=== PATIENT | female | born 1960 | race Caucasian/White ===

== ENCOUNTER → 2018-06-01 14:29 | Outpatient (CLI) | payer MEDICAID, SELFPAY ==
--- NOTE | 2018-06-01 14:31 | US_ITS ---
STUDY: THYROID ULTRASOUND REASON FOR EXAM: Female, 57 years old. Follow-up on thyroid nodule. TECHNIQUE: Ultrasound evaluation of the thyroid was performed with real-time and static kelley-scale imaging. # of Images: 59 COMPARISON: 09/06/2017 FINDINGS: RIGHT LOBE: The right lobe of the thyroid gland measures 3.1 x 1.1 x 0.6 cm. There is a homogeneous echotexture. There are no demonstrated solid, cystic or complex lesions. LEFT LOBE: The left lobe of the thyroid gland measures 3.4 x 1.0 x 0.6 cm. There is a homogeneous echotexture. Again demonstrated a small 3 x 2 x 2 mm hypoechoic nonvascular nodule in the mid left thyroid lobe unchanged. ISTHMUS: The isthmus measures 2.0 mm . US/Thyroid IMPRESSION: 1. Stable 3 mm hypoechoic nodule of the mid left thyroid. 2. Otherwise normal thyroid exam. Electronically Signed: Bill Clayton MD at 10:52 EDT Tel , Service support ,
== END ==
PROVIDERS: Family Provider Nurse Practitioner Family; PCP Nurse Practitioner Family
DX: E04.9 Nontoxic goiter, unspecified (principal)
CPT/HCPCS: 76536

== ENCOUNTER → 2018-08-13 12:20 | Outpatient (CLI) | payer MEDICAID, SELFPAY ==
--- NOTE | 2018-08-13 12:23 | BI_ITS ---
MAMMOGRAPHY - BILATERAL SCREENING REASON FOR EXAM: Female, 57 years old. Routine annual screening examination. PERTINENT HISTORY: Non-contributory. TECHNIQUE: Digital bilateral breast waylon (3D mammographic acquisition) in the CC and MLO projections. 2-D mediolateral oblique (MLO) and craniocaudad (CC) views of both breasts were obtained. CAD: Full Field Digital Mammography with Computer Added Detection was performed. COMPARISON: Comparison is made with prior study dated July 03, 2017. FINDINGS: Breast Composition: There are scattered areas of fibroglandular density. There are no dominant masses or suspicious calcifications. Stable 1.2 cm x 1.1 cm well-defined nodule in the upper outer portion of the right breast. Stable benign-appearing bilateral axillary lymph nodes. No other significant abnormalities are identified. There has been no significant change since the prior study. BI/SCREENING MAMM (CAD), BILAT IMPRESSION: Stable bilateral screening mammogram. Yearly follow-up mammogram recommended. (A) ASSESSMENT CATEGORY: BIRADS Category 2: Benign. A letter regarding these results will be sent to the patient by the facility within 30 days. Approximately 10% of breast cancers are not detected by mammography. A normal mammogram should not delay biopsy of a clinically suspicious abnormality. [id number] Electronically Signed: Edinson Ho MD at 14:29 EST Tel [phone], Service support ,
== END ==
PROVIDERS: Family Provider Nurse Practitioner Family; PCP Nurse Practitioner Family
DX: Z12.31 Encounter for screening mammogram for malignant neoplasm of breast (principal)
CPT/HCPCS: 77063; 77067

== ENCOUNTER → 2020-03-27 | Outpatient (CLI) | payer MEDICAID, SELFPAY ==
--- NOTE | 2020-03-27 13:42 | US_ITS ---
STUDY: THYROID ULTRASOUND REASON FOR EXAM: Female, 59 years old. HYPOTHYROIDISM TECHNIQUE: Ultrasound evaluation of the thyroid was performed with real-time and static kelley-scale imaging. COMPARISON: Comparison is made with prior examination dated 06/01/2018. FINDINGS: RIGHT LOBE: The right lobe of the thyroid gland measures 3.2 cm x 1.2 cm x 0.9 cm. There is a homogeneous echotexture. There are no demonstrated solid, cystic or complex lesions. LEFT LOBE: The left lobe of the thyroid gland measures 3.5 cm x 1 cm x 1 cm. There is a homogeneous echotexture. There is a 3 mm x 2 mm x 1 mm cyst in the upper pole of the left lobe. ISTHMUS: The isthmus measures 4.0 mm. The regional lymph nodes are normal. US/Thyroid IMPRESSION: Stable examination. Electronically Signed: Edinson Ho, at 14:42 EDT , Service support ,
== END | disposition home or self-care (01) ==
LOC: US 13:40
DX: E03.9 Hypothyroidism, unspecified (principal)
CPT/HCPCS: 76536

== ENCOUNTER 2021-10-28 13:52 | Outpatient (RCR) | payer MEDICAID, SELFPAY | END 2021-11-11 23:59 | LOC: NS 13:52 | PROVIDERS: Visit Provider Internal Medicine | DX: Z71.3 Dietary counseling and surveillance (principal); E66.01 Morbid (severe) obesity due to excess calories; Z68.42 Body mass index [BMI] 45.0-49.9, adult | CPT/HCPCS: 97802 ==

== ENCOUNTER 2021-12-20 14:25 | Outpatient (RCR) | payer MEDICAID, SELFPAY | END 2022-01-11 23:59 | LOC: NS 14:25 | PROVIDERS: Referring Provider Internal Medicine; Visit Provider Internal Medicine | DX: Z71.3 Dietary counseling and surveillance (principal); E66.01 Morbid (severe) obesity due to excess calories; Z68.42 Body mass index [BMI] 45.0-49.9, adult | CPT/HCPCS: 97803 ==

== ENCOUNTER 2022-02-10 15:30 | Outpatient (RCR) | payer MEDICAID, SELFPAY | END 2022-02-10 23:59 | LOC: NS 15:30 | PROVIDERS: Referring Provider Internal Medicine; Visit Provider Internal Medicine | DX: Z71.3 Dietary counseling and surveillance (principal); E66.01 Morbid (severe) obesity due to excess calories; Z68.42 Body mass index [BMI] 45.0-49.9, adult | CPT/HCPCS: 97803 ==

== ENCOUNTER 2022-03-03 13:18 | Outpatient (RCR) | payer MEDICAID, SELFPAY | END 2022-03-13 23:59 | LOC: NS 13:18 | PROVIDERS: Referring Provider Internal Medicine; Visit Provider Internal Medicine | DX: Z71.3 Dietary counseling and surveillance (principal); E66.01 Morbid (severe) obesity due to excess calories; Z68.42 Body mass index [BMI] 45.0-49.9, adult | CPT/HCPCS: 97803 ==

== ENCOUNTER 2022-04-07 14:16 | Outpatient (RCR) | payer MEDICAID, SELFPAY | END 2022-04-13 23:59 | LOC: NS 14:16 | PROVIDERS: Referring Provider Internal Medicine; Visit Provider Internal Medicine | DX: Z71.3 Dietary counseling and surveillance (principal); E66.01 Morbid (severe) obesity due to excess calories; Z68.42 Body mass index [BMI] 45.0-49.9, adult | CPT/HCPCS: 97803 ==

== ENCOUNTER 2022-06-20 10:45 | Day surgery (SDC) | payer MEDICAID, SELFPAY ==
[2022-06-20 11:06] VITALS: BP 146/73; PULSE 97; RESP 18; TEMP 36.6; O2SAT 98; BMI 44.0
[2022-06-20] MEDS: Lactated Ringers 1,000 ML 15 ML IV (11:21)
--- NOTE | 2022-06-20 11:52 | HP.PCM_ITS ---
History and Physical Date of Admission: 06/20/22 HISTORY AND PHYSICAL ? Katia Valle 1960 ? REFERRING PHYSICIAN: Rigoberto Quiros MD ? CHIEF COMPLAINT: Consult (colonoscopy) ? HPI: The patient is a 61 year old female referred for endoscopy. Katia notes no colon complaints. Patient denies any change in bowel habits, weight changes, blood in stools, black tarry stools or abdominal pain. Denies family history of colon cancer in a first-degree relative. The patient notes no upper GI complaints. ? Katia has undergone prior endoscopy. Last colonoscopy 12/22/[address] Schuster with conscious sedation. Patient was found at that time to have a a large polyp in the mid descending colon which was resected but could not be retrieved. Patient was noted to have immediate post-polypectomy bleeding and notes that she was transferred to [facility] via ambulance and observed overnight. She notes anxiety regarding colonoscopy procedure and has not had repeat colonoscopy until now, due to this anxiety. She notes she wishes to have this done at hospital setting in case I bleed again. ? Patient denies chest pain, shortness of breath or recent hospitalizations. Denies problems with sedation in the past. ? ? ? PAST MEDICAL HISTORY PAST MEDICAL HISTORY Diagnosis Date ? Benign neoplasm of colon ? ? BMI 45.0-49.9, adult (HCC) 06/18/2015 ? Depressive disorder 05/25/2020 ? Dyslipidemia 02/22/2021 ? Dysmetabolic syndrome X 09/22/2005 ? Essential hypertension, benign 09/22/2005 ? Gastroesophageal reflux disease with esophagitis without hemorrhage 05/25/2020 ? Hyperthyroidism 04/06/2006 ? s/p RODRIGUEZ ? Hypothyroidism 08/19/2008 ? Other irritable bowel syndrome 05/25/2020 ? Tobacco use disorder ? ? Vitamin D deficiency 05/25/2020 ? ? PAST SURGICAL HISTORY PAST SURGICAL HISTORY Procedure Laterality Date ? APPENDECTOMY ? 1998 ? DELIVERY ONLY ? 1983 ? , low cervical ? COLSC FLX W/RMVL OF TUMOR POLYP LESION SNARE TQ ? 12/22/2011 ? LIG/TRNSXJ FLP TUBE ABDL/VAG APPR UNI/BI ? 1983 ? ? ? CURRENT MEDICATIONS Current Outpatient Medications Medication Sig ? cholecalciferol, Vitamin D3, (VITAMIN D3) 1,250 mcg (50,000 unit) cap capsule Take 1 capsule by mouth every 2 weeks. ? famotidine (PEPCID) 40 mg tablet Take 1 tablet by mouth once daily. ? atorvastatin (LIPITOR) 10 mg tablet Take 1 tablet by mouth daily at bedtime. ? atenolol (TENORMIN) 50 mg tablet Take 1 tablet by mouth once daily. ? buPROPion XL (WELLBUTRIN XL) 150 mg 24 hr tablet Take 1 tablet by mouth once daily. ? hydroCHLOROthiazide (HYDRODIURIL, ESIDRIX) 25 mg tablet Take 1 tablet by mouth once daily. ? levothyroxine (LEVOXYL) 175 mcg tablet Take 1 tablet by mouth once daily. Take on empty stomach. For thyroid. ? dicyclomine (BENTYL) 10 mg capsule Take 1 capsule by mouth twice daily as needed. ? MULTIVITAMIN (VITAMIN DAILY ORAL) Take by mouth. ? No current facility-administered medications for this visit. ? ? ALLERGIES: Patient has no known allergies. ? PERSONAL HISTORY: SOCIAL HISTORY Social History ? Tobacco Use ? Smoking status: Every Day ? ? Packs/day: 1.00 ? ? Years: 45.00 ? ? Pack years: 45.00 ? ? Types: Cigarettes ? ? Start date: 10/15/1975 ? Smokeless tobacco: Never Vaping Use ? Vaping Use: Never used Substance Use Topics ? Alcohol use: Yes ? ? Alcohol/week: 6.0 standard drinks ? ? Types: 6 Cans of Beer (12oz) per week ? ? Comment: 1-2drinks 3x a week. ? Drug use: No ? ? FAMILY HISTORY: FAMILY HISTORY FAMILY HISTORY Problem Relation Age of Onset ? Heart Mother ? ? CHF, Afib ? Diabetes Mother ? ? Hypertension Mother ? ? Coronary Artery Disease Mother ? ? Kidney Disease Mother ? ? CKD ? Dementia Mother ? ? COPD Mother ? ? other (Other) Father ? ? pneumonia ? Diabetes Sister ? ? Hypertension Sister ? ? Lipids Sister ? ? Schizophrenia Sister ? ? Stroke Sister ? ? Heart Sister ? ? Hypertension Sister ? ? Diabetes Brother ? ? Hypertension Brother ? ? Obesity Brother ? ? COPD Brother ? ? Obstructive Sleep Apnea Brother ? ? Hypertension Brother ? ? Coronary Artery Disease Brother ? ? Cancer Maternal Grandmother ? ? skin ? Cancer Maternal Grandfather ? ? bowel cancer ? ? No Known Problems Daughter ? ? No Known Problems Son ? ? No Known Problems Son ? ? ? REVIEW OF SYMPTOMS: The review of systems data was entered by the nurse and reviewed by me ? Nursing Notes: Angelica Conde LPN 04/12/2022 12:51 PM Signed REVIEW OF SYSTEMS: General: The patient denies fatigue, denies weight loss, denies weight gain, denies feeling hot, and denies feelings of cold. Eyes: The patient denies glaucoma, denies eye injury/surgery, does not wear glasses or contacts. Ear/Nose/Throat: The patient denies allergies, denies hayfever, denies ear infections, and denies bloody noses. Cardiovascular: The patient denies chest pain, denies heart disease, notes high blood pressure,denies cardiac stent, denies prior heart attack, denies irregular heart beat, notes high cholesterol, denies poor circulation, denies heart failure, other cardiac issues, denies claudication, denies cold feet, denies peripheral arterial stent. Respiratory: The patient denies tuberculosis, denies pneumonia, denies frequent cough, denies pulmonary embolism, denies shortness of breath, and denies coughing up blood. Gastrointestinal: The patient denies difficulty swallowing, notes acid reflux, denies ulcers, denies vomiting, denies jaundice/hepatitis, denies gallbladder problems, denies black or tarry stools, denies hemorrhoids, denies bleeding from rectum, denies diverticulitis, denies constipation, denies diarrhea, denies loss of stool control, and denies hernias. Kidney/Bladder: The patient denies kidney stones, denies urine infections, and denies bloody urine. Skin: The patient denies a history of skin cancer, denies bleeding/changing moles, and denies a history of skin rash. Neurologic: The patient denies a history of epilepsy/convulsions, denies headaches, denies head/spinal injuries, and denies stroke/TIA. Psychiatric: The patient denies psychiatric medications, denies depression, and denies voices, denies substance abuse. Endocrine: The patient notes thyroid disorders, denies diabetes, and denies hormonal problems. Hematologic: The patient denies a history of bruising, denies bleeding, and denies anemia, denies blood clots. Infections: The patient denies a history of measles and mumps, denies rheumatic fever, and denies sexually transmitted diseases. Musculoskeletal: The patient denies back pain/injury, denies back problems, denies sciatica, denies knee/foot trouble, denies arthritis, or denies gout. ? ? When was patient's last Mammogram screening 2020 ? Last Colonoscopy: 2011 ? Angelica Conde LPN I have confirmed and edited as necessary, the PFSH and ROS obtained by others. Tracey Cavazos PA-C ? PHYSICAL EXAMINATION: ? General: The patient is 61 year old female, well nourished, well hydrated in no acute distress. The patient is oriented to time, place, and person. ? VITALS: Blood pressure 126/74, pulse 72, temperature 36.3 ?C (97.3 ?F), height 157.5 cm (5' 2), weight 111.6 kg (246 lb), last menstrual period 07/19/2006, SpO2 95 %. Body mass index is 44.99 kg/m?. ? HEENT: Normal cephalic, ataumatic, pupils are equally round, sclera are anicteric, mucous membranes are moist, oropharynx is clear. Neck has no masses, asymmetry or lymphadenopathy. ? Respiratory: Clear to auscultation and percussion. Normal respiratory excursion and pattern. ? Cardiac: Examination is regular rate and rhythm. Normal S1/S2 ? Abdominal exam: Soft, nontender, with no palpable masses. No hepatosplenomegaly. No palpable hernias. ? Extremities: no clubbing, cyanosis or edema. No adenopathy. ? LABORATORY VALUES: As Noted ? RADIOLOGIC STUDIES: As Noted ? ? Assessment IMPRESSION: encounter for screening colonoscopy. History of colon polyp. History of post-polypectomy bleed ? PLAN: I have reviewed my findings with the surgeon. Will plan for lower endoscopy. We discussed the risks and benefits of the planned endoscopy. I have informed the patient that complications can occur including failure to complete the endoscopy and perforation. The patient had the opportunity to ask questions concerning the planned endoscopy. My staff has also explained the procedure to the patient in understandable terms and has given the patient printed material concerning the procedure. The patient freely consents to surgery. ? The patient was offered a surgery/procedure at a [facility] facility. I have counseled the patient regarding the risk of exposure to and/or potential harm posed by the COVID-19 virus with having a surgery/procedure at this time versus the risk of? delaying the surgery/procedure. It is not possible to know either the risk of delaying the surgery or procedure or chance of getting an infection with perfect accuracy, but a joint decision was made between the patient and myself?to proceed at this time with endoscopy. ? ? I plan to use Golytely bowel preparation ? I have explained to the patient the difference between IV conscious sedation and MAC anesthesia - and I have offered either, according to the patient's wishes. I have explained that with IV conscious sedation there is no anesthesia provider available and therefore there is a limitation of the amount of IV medications that can be given and that the patient may wake up in the middle of the procedure and/or experience pain/discomfort during the procedure. Further discussion was done and the patient was given the opportunity to ask questions and all questions were answered. The patient chooses MAC anesthesia ? ? ? Diagnoses: (Z12.11) Encounter for screening for malignant neoplasm of colon (primary encounter diagnosis) ? Consultation requested by Dr. Quiros for an opinion regarding screening colonoscopy. My final recommendations will be communicated back to the request ing physician by way of shared Medical record or letter to requesting physician via US mail. ? Tracey Cavazos PA-C I have examined the patient and the H&P has been reviewed. There are no clinical changes since date of exam.
[2022-06-20 12:37] VITALS: BP 115/60; BP 146/73; PULSE 85; RESP 16; TEMP 36.5; O2SAT 93
--- NOTE | 2022-06-20 12:37 | OP.COLON_ITS ---
Patient Name: Katia Valle Procedure Date: 06/20/2022 12:10 PM Date of : 1960 Age: 61 Procedure: Colonoscopy Indications: High risk colon cancer surveillance: Personal history of colonic polyps Providers: Fadi Medina MD Medicines: See the Anesthesia note for documentation of the administered medications Patient Profile: This is a 61 year old female. Refer to note in patient chart for documentation of history and physical. Last Colonoscopy: 2011. Complications: No immediate complications. Estimated blood loss: None. Procedure: Pre-Anesthesia Assessment: - Prior to the procedure, a History and Physical was performed, and patient medications and allergies were reviewed. The patient's tolerance of previous anesthesia was also reviewed. The risks and benefits of the procedure and the sedation options and risks were discussed with the patient. All questions were answered, and informed consent was obtained. Prior Anticoagulants: The patient has taken no previous anticoagulant or antiplatelet agents. ASA Grade Assessment: III - A patient with severe systemic disease. After reviewing the risks and benefits, the patient was deemed in satisfactory condition to undergo the procedure. After I obtained informed consent, the scope was passed under direct vision. Throughout the procedure, the patient's blood pressure, pulse, and oxygen saturations were monitored continuously. The adult colonoscope was introduced through the anus and advanced to 2 cm into the ileum. The colonoscopy was performed without difficulty. The patient tolerated the procedure well. The quality of the bowel preparation was good. The terminal ileum, ileocecal valve, appendiceal orifice, and rectum were photographed. Scope In: 12:17:03 PM Scope Withdrawal Time 0 hours 7 minutes 7 seconds Scope Out: 12:32:19 PM Total Procedure Duration Time 0 hours 15 minutes 16 seconds Findings: The perianal and digital rectal examinations were normal. Multiple small and large-mouthed diverticula were found in the sigmoid colon and descending colon. Non-bleeding internal hemorrhoids were found during retroflexion. The hemorrhoids were mild and small. The terminal ileum appeared normal. The exam was otherwise without abnormality. Impression: - Diverticulosis in the sigmoid colon and in the descending colon. - Non-bleeding internal hemorrhoids. - The examined portion of the ileum was normal. - The examination was otherwise normal. - No specimens collected. Recommendation: - Patient has a contact number available for emergencies. The signs and symptoms of potential delayed complications were discussed with the patient. Return to normal activities tomorrow. Written discharge instructions were provided to the patient. - Resume previous diet. - Continue present medications. - Repeat colonoscopy in 10 years for screening purposes. - Return to primary care physician PRN. Procedure Code(s): --- Professional --- 69040, Colonoscopy, flexible; diagnostic, including collection of specimen(s) by brushing or washing, when performed (separate procedure) Diagnosis Code(s): --- Professional --- Z86.010, Personal history of colonic polyps K64.8, Other hemorrhoids K57.30, Diverticulosis of large intestine without perforation or abscess without bleeding CPT copyright 2017 [employer]. All rights reserved. The codes documented in this report are preliminary and upon sugar drier review may be revised to meet current compliance requirements. MD Fadi Manuel MD 06/20/2022 12:36:51 PM This report has been signed electronically. Number of Addenda: 0 Note Initiated On: 06/20/2022 12:10 PM
--- NOTE | 2022-06-20 12:38 | OP.CCLET_ITS ---
[facility] This procedure was performed on Monday, June 20, 2022. My impressions and recommendations are as follows: Impressions : - Diverticulosis in the sigmoid colon and in the descending colon. - Non-bleeding internal hemorrhoids. - The examined portion of the ileum was normal. - The examination was otherwise normal. - No specimens collected. Recommendations : - Patient has a contact number available for emergencies. The signs and symptoms of potential delayed complications were discussed with the patient. Return to normal activities tomorrow. Written discharge instructions were provided to the patient. - Resume previous diet. - Continue present medications. - Repeat colonoscopy in 10 years for screening purposes. - Return to primary care physician PRN. My findings are described in the full procedure note, which is enclosed. If I can be of further assistance, please feel free to contact me at Doctor phone number(s): , Work: . Sincerely, MD Fadi Manuel MD 06/20/2022 12:36:51 PM This report has been signed electronically.
[2022-06-20 12:45] VITALS: BP 113/62; BP 146/73; PULSE 85; RESP 16; O2SAT 93
[2022-06-20 12:50] VITALS: BP 107/70; BP 146/73; PULSE 83; RESP 16; O2SAT 94
[2022-06-20 12:55] VITALS: BP 119/68; BP 146/73; PULSE 80; RESP 16; TEMP 36.5; O2SAT 93
[2022-06-20 13:12] VITALS: BP 146/73
== END 2022-06-20 13:54 | disposition home or self-care (01) ==
LOC: EN 10:47 → AC 10:48
PROVIDERS: PCP Internal Medicine; Referring Provider Internal Medicine; Visit Provider Surgery
PROC: 0DJD8ZZ Inspection of Lower Intestinal Tract, Via Natural or Artificial Opening Endoscopic (ICD-10-PCS; CPT 45378; principal; 2022-06-20 11:55)
DX: Z12.11 Encounter for screening for malignant neoplasm of colon (principal); K57.30 Diverticulosis of large intestine without perforation or abscess without bleeding; K64.8 Other hemorrhoids; I10 Essential (primary) hypertension; E78.5 Hyperlipidemia, unspecified; F32.9 Major depressive disorder, single episode, unspecified; E88.81 Metabolic syndrome and other insulin resistance; K21.9 Gastro-esophageal reflux disease without esophagitis; E05.90 Thyrotoxicosis, unspecified without thyrotoxic crisis or storm; E55.9 Vitamin D deficiency, unspecified; Z79.899 Other long term (current) drug therapy; Z86.010 Personal history of colon polyps; F17.210 Nicotine dependence, cigarettes, uncomplicated
CPT/HCPCS: 45378; J7120; J2405

== ENCOUNTER → 2022-10-04 | Outpatient (CLI) | payer MEDICAID, SELFPAY ==
--- NOTE | 2022-10-04 14:11 | CT_ITS ---
STUDY: LOW DOSE CT LUNG CANCER SCREENING REASON FOR EXAM: Female, 61 years old. Lung cancer screening -- and gt;20 pk yr hx;current smoker; asymptomatic RADIATION DOSAGE (If Supplied By Facility): CTDIvol = ( 4.02 ) mGy, DLP = ( 131.39 ) mGycm TECHNIQUE: No contrast was administered. Low dose technique was utilized (average mAS-38 and kVp 120). 1.25 mm axial source images with a slice interval of 1.25-mm were reconstructed in lung windows. 2.5 mm axial source images with a slice interval of 2.5-mm were reconstructed in lung windows. 5.0 mm axial source images with a slice interval of 5.0-mm were reconstructed in soft tissue windows. COMPARISON: None. NODULES: No suspicious nodule is seen. Emphysema: Unremarkable Endobronchial lesion: None Aorta: Mild degree of atherosclerotic plaque formation at several of the aortic arch. CORONARY ARTERIES: Coronary artery calcification is seen. Heart: Unremarkable Pulmonary artery: Unremarkable Mediastinal nodes: Unremarkable Other chest and abdominal findings: CT/Low Dose CT Lung Screening IMPRESSION: Lung-RADS category 2 - Continue annual screening with LDCT in 12 months. IMPORTANT NOTES FOR USE: ACR Lung-RADS Version 1.1 Assessment Categories Release Date: 2018 Category: Coded 0-4 bases on nodule(s) with highest degree of suspicion. Negative screen is defined as categories 1 and 2; a positive screen is defined as categories 3 and 4. Category 3 and 4A nodules that are unchanged on interval CT should be coded as category 2, and individuals returned to screening in 12 months. Category 4X: Category 3 or 4 nodules with additional imaging findings that increase the suspicion of lung cancer, such as spiculation, GGN that doubles in size in 1 year, enlarged lymph notes, etc. Category Modifiers: S (significant finding unrelated to lung cancer) Electronically Signed: Edinson Ho MD at 14:43 EST ,
== END | disposition home or self-care (01) ==
LOC: CT 14:10
PROVIDERS: PCP Internal Medicine; Visit Provider Nurse Practitioner Family
DX: Z87.891 Personal history of nicotine dependence (principal); Z12.2 Encounter for screening for malignant neoplasm of respiratory organs
CPT/HCPCS: 71271

== ENCOUNTER 2024-09-29 17:31 | Emergency (ER) | payer MEDICARE, MEDICAID, SELFPAY ==
[2024-09-29 17:32] VITALS: BP 158/82; PULSE 77; RESP 16; TEMP 36.4; O2SAT 98; BMI 49.0
--- NOTE | 2024-09-29 17:41 | EX.ED.DYSGE1 ---
HPI <HELLEN Baig - Last Filed: 09/29/24 19:01> History of Present Illness Chief Complaint: General Illness Narrative Narrative: Patient is a 63-year-old female with history of hypertension hyperlipidemia, tobacco use, significant for obesity who presents to the [facility] apartment for 2 days of cough, generalized congestion, runny nose. Today, she noticed that she was more achy, had a headache, also has some dry throat. Patient is also here with her daughter who has the same symptoms. [facility] <HELLEN Baig - Last Filed: 09/29/24 19:01> [facility] Medical History Encounter for screening for malignant neoplasm of lung Post-menopausal Depression Alcohol use Thyroid disease High cholesterol History of IBS Hypertension Gastric reflux Shortness of breath on exertion Smoker Home Medications ?Medication ?Instructions ?Recorded ?Last Taken ?Type famotidine 40 mg tablet (Pepcid) 40 mg PO DAILY #30 tabs 05/16/15 Unknown Rx atenolol 50 mg tablet 50 mg PO DAILY 07/28/17 Unknown History dicyclomine 10 mg capsule 10 mg PO DAILY 07/28/17 Unknown History hydrochlorothiazide 25 mg tablet 25 mg PO DAILY 07/28/17 Unknown History levothyroxine 150 mcg tablet 175 mcg PO DAILY 07/28/17 Unknown History omeprazole 20 mg capsule,delayed 20 mg PO DAILY #30 caps 07/29/17 Unknown Rx release atorvastatin 10 mg tablet 10 mg PO QHS HLD 06/16/22 Unknown History Allergy/AdvReac Type Severity Reaction Status Date / Time No Known Allergies Allergy Verified 09/29/24 17:34 Surgical History History of colonoscopy History of appendectomy History of History of D&C Social History (Updated 10/04/22 @ 13:37 by Yareli Espinosa) Smoking Status: Current every day smoker tobacco type: cigarettes ROS <HELLEN Baig - Last Filed: 09/29/24 19:01> ROS ED ROS Narrative Constitutional: Negative for fever, chills, weight loss, weakness Eyes: Negative for vision loss, vision change, double vision ENT: Negative for any sore throat, ear pain, congestion Cardiovascular: Negative for any chest pain, tightness, palpitations Respiratory: Negative for any sputum production, hemoptysis, dyspnea on exertion, orthopnea. Positive cough, dyspnea Gastrointestinal: Negative for any abdominal pain, nausea, vomiting, diarrhea, constipation, blood in stool, blood in vomit : Negative for any urinary frequency, dysuria, retention, blood in urine Muscle skeletal: Negative for any neck pain, back pain Neurological: Negative for any syncope, dizziness. Positive for headache Skin: Negative for any rashes, itching, abrasions, lacerations Psychiatric: Negative for any depression, anxiety, stress, suicidal ideation, homicidal ideation Hematologic: Negative for any excessive bruising, easy bleeding EXAM <HELLEN Baig - Last Filed: 09/29/24 19:01> Physical Exam Narrative Exam Narrative: Vital signs reviewed. HEET: Head normocephalic atraumatic, TMs clear bilaterally. Posterior pharynx is clear, moist mucous membranes. Nares clear bilaterally. Neck: Supple with no lymphadenopathy or tenderness. No signs of meningismus. Cardiac: Regular rate and rhythm no murmurs gallops or rubs, equal peripheral pulses bilaterally. Respiratory: Lungs clear to auscultation bilaterally. No chest tenderness. Abdomen: Soft, nontender, nondistended. No abdominal bruit or pulsatile masses. No hepatosplenomegaly Extremities: No peripheral edema, no signs of gross trauma or deformity. Active full range of motion of all extremities. Neuro: Cranial nerves II through XII intact, no focal neurological deficits. Skin: Clean dry and intact with no rash, purpura, petechiae, vesicles or pustules. Backs/flank: No CVA tenderness, no midline spinal tenderness, no deformity. Psych: Normal mood and affect. No SI, HI or acute psychosis. Const Vital Signs: 09/29/24 17:32 09/29/24 17:48 09/29/24 18:00 Temperature 97.5 F L Temperature Source Temporal Pulse Rate 77 Respiratory Rate 16 18 Respiratory Pattern Normal Normal Blood Pressure 158/82 H Blood Pressure Mean 107 Pulse Ox 98 Oxygen Delivery Method Room Air <Dr. Sarath Acuña MD - Last Filed: 09/29/24 20:23> Physical Exam Const Vital Signs: 09/29/24 17:32 09/29/24 17:48 09/29/24 18:00 Temperature 97.5 F L Temperature Source Temporal Pulse Rate 77 Respiratory Rate 16 18 Respiratory Pattern Normal Normal Blood Pressure 158/82 H Blood Pressure Mean 107 Pulse Ox 98 Oxygen Delivery Method Room Air [facility] <HELLEN Baig - Last Filed: 09/29/24 19:01> [facility] Radiography Diagnostic Testing: Clinical Impression(s) from Imaging Studies Chest X-Ray 09/29/24 17:50 IMPRESSION: 1. No acute cardiopulmonary process. Reading Location: [facility] Treatment and Re-Evaluation :: Differential diagnosis includes however is not limited to: COVID-19, influenza, community pneumonia, RSV, other virus Patient appears generally well, vital signs are stable, patient is nontoxic-appearing. Presenting to the emergency department for cough, congestion of last 2 days. Patient two-view chest x-ray interpreted the ER physician was negative for any acute process. Patient's COVID-19 influenza RSV swab was negative. At this time, patient was given an albuterol inhaler and taught how to use it. She was also given a spacer. She is instructed to follow-up outpatient. She was educated that the patient could experience symptoms for the next 7 to 10 days. All questions answered, patient stable for discharge <Dr. Sarath Acuña MD - Last Filed: 09/29/24 20:23> [facility] Narrative Medical decision making narrative: I have personally performed a face to face assessment of the patient and have reviewed the [place] Note. I performed a substantive portion of the visit including all aspects of the following. My delgado findings include: History is remarkable for flulike symptoms that started in the past 24 to 48 hours. Patient endorses rhinorrhea, congestion, sore throat. She does have a cough. Cough is productive. She also was wheezing. She has no history of asthma or COPD. She is a smoker. She has never used an inhaler. She denies history of VTE. Denies leg pain, swelling discoloration. Other family members are ill. Apparently her daughter is being seen as well for flulike symptoms. Exam is remarkable for blood pressure of 158/82. She is not febrile. She not tachycardic tachypneic or hypoxic. She smells of tobacco. HEENT exam is remarkable for rhinorrhea. Posterior pharynx is normal. Neck is supple. There is no cervical lymphadenopathy. Patient has scattered expiratory wheezing noted with decreased air movement and increased expiratory phase. Heart is regular. Rate is normal. There is no murmur, gallop or rub. Lower extremity exam reveals no swelling, asymmetry, discoloration, leg vein distention, palp cord since on the distribution deep venous system. Medical Decision Making because patient has productive cough wheezing smoker will obtain x-ray to assess for pneumonia and rapid antigen for COVID, RSV and influenza. Since patient is never used an inhaler respiratory is instructing her how to use an inhaler and she will be reassessed. Other additions or changes: [None] Lab Data Attestation: I reviewed the patient's lab results. Lab results narrative: Rapid antigen for COVID, influenza and RSV was negative. Radiography Chest X-Ray - ED: 2 View and Read by ED Physician (Interpreted by me as suboptimal. Inspiratory volume is limited. The hilum is full bilaterally. Question peribronchial cuffing. On the lateral she has significant arthritic changes of the dorsal vertebral bodies. The retrocardiac space is opacified. However inspiratory volume is minimal. There) Diagnostic Testing: Clinical Impression(s) from Imaging Studies Chest X-Ray 09/29/24 17:50 IMPRESSION: 1. No acute cardiopulmonary process. Reading Location: [facility] Discharge Plan Triage Chief Complaint: General Illness ED Midlevel Provider: Dileep Bernal ED Provider: Sarath Acuña Dx/Rx/DC Orders Clinical Impression: URI (upper respiratory infection), Benign hypertension, History of gastroesophageal reflux (GERD), Tobacco abuse, Acute bronchospasm Instructions: ED URI, Viral, No Abx (Adult) Prescriptions: No Action famotidine [Pepcid] 40 MG tablet 40 mg PO DAILY Qty: 30 0RF levothyroxine 150 MCG tablet 175 mcg PO DAILY hydrochlorothiazide 25 MG tablet 25 mg PO DAILY dicyclomine 10 MG capsule 10 mg PO DAILY atenolol 50 MG tablet 50 mg PO DAILY omeprazole 20 MG capsule 20 mg PO DAILY Qty: 30 0RF atorvastatin 10 mg tablet 10 mg PO QHS Patient Comments: Take 1 tablet by mouth daily at bedtime. Primary Care Provider: Rigoberto Quiros Referrals: Rigoberto Quiros MD [Primary Care Provider] - Activity Restrictions/Additional Instructions: Continue using albuterol inhaler 2 puffs every 4-6 hours. You would likely have a upper respiratory tract virus, this can have symptoms on for the next 7 to 10 days. Make sure you take [id number] ibuprofen and Tylenol. Print Language: Hungarian Disposition Disposition: Home, Self Care Discharge Date/Time: 09/29/24 19:08
--- NOTE | 2024-09-29 17:50 | RAD_ITS ---
PROCEDURE: CHEST PA AND LATERAL REASON FOR EXAM: Cough TECHNIQUE: Frontal and lateral views of the chest. COMPARISON: 10/04/2022 FINDINGS: The lungs are clear. No pleural effusion or pneumothorax. The cardiomediastinal silhouette is unremarkable. No acute osseous or soft tissue abnormality. RAD/Chest PA and Lateral IMPRESSION: 1. No acute cardiopulmonary process. Reading Location: [facility]
[2024-09-29] MEDS: Albuterol Sulfate 8 gm Inhaler (60 puffs) 2 PUFF INHALATION (17:57)
[2024-09-29 18:00] VITALS: RESP 18
[2024-09-29] MEDS: Acetaminophen 500 MG Tablet 1000 MG PO (18:04)
== END 2024-09-29 19:08 | disposition home or self-care (01) ==
PROVIDERS: Emergency Provider Emergency Medicine; PCP Internal Medicine; Visit Provider Emergency Medicine
DX: J06.9 Acute upper respiratory infection, unspecified (principal); F17.200 Nicotine dependence, unspecified, uncomplicated; E78.00 Pure hypercholesterolemia, unspecified; I10 Essential (primary) hypertension; K21.9 Gastro-esophageal reflux disease without esophagitis; J98.01 Acute bronchospasm; Z79.899 Other long term (current) drug therapy; Z90.49 Acquired absence of other specified parts of digestive tract
CPT/HCPCS: 71046; 87631; 94640; 99282

== ENCOUNTER 2024-11-04 18:12 | Emergency (ER) | payer MEDICARE, MEDICAID, SELFPAY ==
[2024-11-04 18:14] VITALS: BP 152/81; PULSE 77; RESP 16; TEMP 36.8; O2SAT 98; BMI 47.4
[2024-11-04 20:00] VITALS: BP 119/63; PULSE 73; RESP 18; O2SAT 95
--- NOTE | 2024-11-04 20:08 | EDS_ITS ---
HPI History of Present Illness Chief Complaint: General Illness Detail of Chief Complaint: Headache, throat pain and abdominal pain with a stent Informant: patient Onset/Context/Timing Onset: Days (3 days) Context: Gradual Onset Timing: Continuous and Waxes and wanes Quality: Bifrontal pain, throat pain and generalized abdominal pain Location: Multiple areas Current Severity: Mild Maximum Severity: Moderate Worsened by: Nothing Relieved by: Nothing Associated Symptoms Associated Symptoms: Slight nausea Narrative Narrative: Patient is a 64-year-old woman. Patient presents with head pain, sore throat and generalized abdominal pain. She reports nausea without vomiting or diarrhea. She denies fever or chills. She denies double vision blurred vision loss of vision. Nuys ringing or ears decreased hearing. She denies rhinorrhea, congestion postnasal drainage. She denies change in voice. She denies difficulty swallowing. She denies cough or shortness of breath. She denies chest discomfort. She denies urologic symptoms. There is no history of trauma. There is no family history of subarachnoid hemorrhage. Prior similar symptoms: No Recent Illness/Hospitalization: No [facility] Medical History Encounter for screening for malignant neoplasm of lung Post-menopausal Depression Alcohol use Thyroid disease High cholesterol History of IBS Hypertension Gastric reflux Shortness of breath on exertion Smoker Home Medications ?Medication ?Instructions ?Recorded ?Last Taken ?Type famotidine 40 mg tablet (Pepcid) 40 mg PO DAILY #30 ta bs 05/16/15 Unknown Rx atenolol 50 mg tablet 50 mg PO DAILY 07/28/17 Unkn own History dicyclomine 10 mg capsule 10 mg PO DAILY 07/28/17 Unkn own History hydrochlorothiazide 25 mg tablet 25 mg PO DAILY Unknown History levothyroxine 150 mcg tablet 150 mcg PO DAILY 07/28/17 Unknown History omeprazole 20 mg capsule,delayed 20 mg PO DAILY #30 ca ps 07/29/17 Unknown Rx release atorvastatin 10 mg tablet 10 mg PO QHS HLD 06/16/22 Un known History amlodipine 2.5 mg tablet 2.5 mg PO DAILY 11/04/24 Unk nown History bupropion HCl 300 mg 24 hr tablet, 300 mg PO DAILY Unknown History extended release cholecalciferol (vitamin D3) 1,250 1,250 mcg PO QWEEK 11/04/24 Unknown History mcg (50,000 unit) capsule nystatin 100,000 unit/gram topical 1 applic topical BI D 11/04/24 Unknown History powder ([facility]) vibegron 75 mg tablet (Gemtesa) 75 mg PO DAILY 5 Unknown History Allergy/AdvReac Type Severity Reaction Status Date / Time No Known Allergies Allergy Verified 11/04/24 18:15 Surgical History History of colonoscopy History of appendectomy History of History of D&C Social History Smoking Status: Heavy Smoker (>10/day) ROS ROS ED Constitutional Constitutional ED: Denies chills, fever(s), subjective, sweats or weight loss Eyes Eyes: Denies blurry vision, change in vision or diplopia ENT ENT ED: Reports sore throat; Denies ear pain or rhinorrhea Cardiovascular Cardiovascular: Denies chest pain, orthopnea, palpitations or racing heartbeat Respiratory/Chest Respiratory/Chest: Denies cough, dyspnea, dyspnea on exertion or orthopnea Gastrointestinal Gastrointestinal: Reports abdominal pain and nausea; Denies constipation, diarrhea, melena or vomiting Genitourinary Genitourinary ED: Denies dysuria, hematuria or urinary frequency Musculoskeletal Musculoskeletal: Denies arthralgias or myalgias Integumentary Denies rash Neurologic Neurologic: Reports headache(s); Denies paresthesias or weakness Endocrine Endocrinology: Denies cold intolerance or heat intolerance EXAM Physical Exam Const Vital Signs: 11/04/24 18:14 11/04/24 19:28 11/04/24 20:00 Temperature 98.3 F Temperature Source Oral Pulse Rate 77 73 Respiratory Rate 16 18 Respiratory Effort Normal Non-Labored Respiratory Pattern Normal Blood Pressure 152/81 H 119/63 Blood Pressure Mean 104 81 Pulse Ox 98 95 Oxygen Delivery Method Room Air Room Air 11/04/24 22:00 Temperature Temperature Source Pulse Rate 69 Respiratory Rate 18 Respiratory Effort Respiratory Pattern Blood Pressure 110/77 Blood Pressure Mean 88 Pulse Ox 95 Oxygen Delivery Method Room Air Positive well nourished and well developed Constitutional Narrative: BMI is 47.4. Patient appears in no distress. General Appearance ED: well developed and NAD; Negative for cyanotic, diaphoretic or pallor HEENT Reports moist mucous membranes HEENT Narrative: Head is atraumatic normocephalic. Ears normal. Nares patent. Posterior pharynx is normal. Uvula is midline. There is no deviation with protrusion. There is no postnasal drainage noted. There is no dysphonia. Eyes PERRL and EOMs intact bilaterally General Eye ED: Negative for pale conjunctiva or scleral icterus Neck no lymphadenopathy, supple and no JVD Resp normal respiratory effort and clear to auscultation bilaterally Cardio regular rate, regular rhythm, S1 normal heart sound, S2 normal heart sound and no murmurs GI normal to inspection, nondistended, normoactive bowel sounds and non-distended; Negative for non-tender, hepatosplenomegaly or no masses GI Narrative: Patient is abdomen is soft. She complains of vague generalized discomfort to deep palpation. There is no guarding or peritoneal findings. There is no umbilical hernia. There are no skin lesions noted. Palpation: soft Back/Spine no CVA tenderness Extremity normal to inspection General Extremety ED: Negative for edema or tenderness General Extremity: Negative for edema Neuro oriented x3, CN's II-XII intact bilaterally and no sensory deficits noted Sensorium / Orientation: alert Motor Exam: strength 5/5 throughout Psych mental status grossly normal Skin no rashes or lesions noted, no wounds and skin turgor normal General Skin Exam: elasticity normal; Negative for jaundice or pallor MDM MDM MDM Narrative Medical decision making narrative: Suspect this represents viral infection. Do not believe patient has sinus infection or meningitis. She may have slight pharyngitis. There is no exuda tive pharyngitis and there is no concern for strep pharyngitis. Clinically she does not have any respiratory symptoms and auscultation is normal doubt pneumonia. Her abdominal exam is very vague will obtain screening blood work if there is anything of significant abnormal will obtain advanced imaging. Prior records were reviewed. History & Record Review Additional record(s) reviewed:: Prior ED visit (Seen for upper respiratory infection September 29, 2024. Seen at urgent care for lower extremity exam swelling April 2024. Was seen by oncology tirelessly alondra for cancer screening due to her smoking history. No imaging was obtained at that time.) Lab Data Attestation: I reviewed the patient's lab results. Lab results narrative: White count is elevated. The patient has normal differential. Patient's had elevated white count dating back to 2016. She has never had this worked up per patient and I do not find any oncology records to indicate this has been worked up. Urinalysis was obtained and is negative. She has mild proteinuria and occult blood. Labs: Laboratory Results - last 24 hr 11/04/24 11/04/24 20:25 20:28 WBC 13.2 H RBC 4.30 Hgb 13.3 Hct 38.6 MCV 89.8 MCH 30.9 MCHC 34.5 RDW Std Deviation 40.9 RDW Coeff of Ashia 12.4 Plt Count 238 MPV 11.1 Immature Gran % (Auto) 0.300 Neut % (Auto) 65.4 Lymph % (Auto) 24.5 Meigs % (Auto) 7.3 Eos % (Auto) 2.0 Baso % (Auto) 0.5 Absolute Neuts (auto) 8.6 H Absolute Lymphs (auto) 3.22 Nucleated RBC % 0 Sodium 130 L Potassium 3.8 Chloride 94 L Carbon Dioxide 22.3 Anion Gap 13 BUN 4 Creatinine 0.51 L Estim Creat Clear Calc 84.20 Est GFR (MDRD) Non-Af 103 BUN/Creatinine Ratio 7.9 L Glucose 129 H Calcium 9.0 Urine Color Straw Urine Clarity Clear Urine pH 6.5 Ur Specific [place] 1.005 Urine Protein 15 H Urine Glucose (UA) Normal Urine Ketones Negative Urine Occult Blood 10 H Urine Nitrite Negative Urine Bilirubin Negative Urine Urobilinogen Normal Ur Leukocyte Esterase Negative Urine RBC 0 SEEN Urine WBC 0-5 SEEN Ur Squamous Epith Cells 0-5 SEEN Urine Bacteria RARE Urine Mucus 0 SEEN Treatment and Re-Evaluation :: Patient was reassessed and informed of results at 2215. Headache essentially resolved with Tylenol. She was discharged to home appropriate home-going instructions. Discharge Plan Triage Chief Complaint: General Illness ED Provider: Sarath Acuña Dx/Rx/DC Orders Clinical Impression: Acute viral syndrome, Leukocytosis, BMI 45.0-49.9, adult Instructions: ED Viral Syndrome (Adult) Prescriptions: No Action famotidine [Pepcid] 40 MG tablet 40 mg PO DAILY Qty: 30 0RF levothyroxine 150 MCG tablet 150 mcg PO DAILY hydrochlorothiazide 25 MG tablet 25 mg PO DAILY dicyclomine 10 MG capsule 10 mg PO DAILY atenolol 50 MG tablet 50 mg PO DAILY omeprazole 20 MG capsule 20 mg PO DAILY Qty: 30 0RF atorvastatin 10 mg tablet 10 mg PO QHS Patient Comments: Take 1 tablet by mouth daily at bedtime. amlodipine 2.5 mg tablet 2.5 mg PO DAILY bupropion HCl 300 mg tablet extended release 24 hr 300 mg PO DAILY cholecalciferol (vitamin D3) 1,250 mcg (50,000 unit) capsule 1,250 mcg PO QWEEK Rx Instructions: every two weeks nystatin [Nyamyc] 100,000 unit/gram powder 1 applic topical BID Gemtesa 75 mg tablet 75 mg PO DAILY Primary Care Provider: Rigoberto Quiros Referrals: Rigoberto Quiros MD [Primary Care Provider] - 1 Week if not improving Print Language: Portuguese Disposition Disposition: Home, Self Care
[2024-11-04] MEDS: Acetaminophen 325 MG Tablet 650 MG PO (20:29)
[2024-11-04 20:44] LABS: Mucous, Urine 0 SEEN /hpf (<or=2+)
[2024-11-04 20:45] LABS: Color, Urine Straw (Yellow); Glucose, Dipstick Normal (Normal); Ketone-Dipstick Negative (Negative); Leukocyte Esterase-Dipstick Negative /ul (Negative); Nitrite-Dipstick Negative (Negative); Occult Blood-Urine 10 /ul (Negative); Protein-Dipstick 15 mg/dl (Negative); Specific Gravity, Urine 1.005 (1.002-1.030); Urine Bilirubin Dipstick Negative (Negative); Urine Clarity Clear (Clear); Urine Urobilinogen Normal (Normal); Urine pH 6.5 (5.0 - 8.0)
[2024-11-04 20:45] LABS: Absolute Lymphocyte Count 3.22 X10^3/uL (0.83-4.51); Absolute Neutrophil Count 8.6 X10^3/uL (2.0-7.7); Basophil# 0.07 X10^3/uL; Basophil% 0.5 % (0-1); Eosinophil# 0.26 X10^3/uL; Hematocrit 38.6 % (37-47); Hemoglobin 13.3 g/dL (12.0-15.0); Lymphocyte # 3.22 X10^3/ul (0.83-4.51); Lymphocyte % 24.5 % (19-41); Mean Corp Hgb Conc 34.5 g/dL (32-36); Mean Corpuscular Hgb 30.9 pg (27.0-32.0); Mean Corpuscular Volume 89.8 fL (81-99); Mean Platelet Vol. 11.1 fl (6.2-12.0); Monocyte# 0.96 X10^3/uL; Monocyte% 7.3 % (0-10); NRBC Flagged by Analyzer 0 % (0-5); Neutrophil % 65.4 % (47-70); Platelet Count 238 K/mm3 (150-450); RBC Distribution Width CV 12.4 % (11.6-14.6); RBC Distribution Width SD 40.9 fl (35.1-43.9); White Blood Count 13.2 K/mm3 (4.4-11.0)
[2024-11-04 21:39] LABS: Bacteria RARE /hpf (None Seen); Red Blood Cells-Urine 0 SEEN /hpf (0-5); Squamous Epithelial Cells - UA 0-5 SEEN /hpf (5-10); White Blood Cells 0-5 SEEN /hpf (0-5)
[2024-11-04 21:40] LABS: Anion Gap 13 (5-15); BUN 4 mg/dL (4-19); BUN/Creat Ratio 7.9 RATIO (10-20); Carbon Dioxide 22.3 mmol/L (21.0-32.0); Chloride 94 mmol/L (98-108); Creatinine, Serum 0.51 mg/dL (0.70-1.20); EST Glomerular Filtration Rate 103 (>60); Glucose 129 mg/dL (70-99); Potassium 3.8 mmol/L (3.3-5.1); Sodium Level 130 mmol/L (133-145)
[2024-11-04 22:00] VITALS: BP 110/77; PULSE 69; RESP 18; O2SAT 95
[2024-11-04 22:21] VITALS: BP 123/66; PULSE 66; RESP 18; TEMP 36.7; O2SAT 96
== END 2024-11-04 22:25 | disposition home or self-care (01) ==
PROVIDERS: Emergency Provider Emergency Medicine; PCP Internal Medicine; Visit Provider Emergency Medicine
DX: B34.9 Viral infection, unspecified (principal); E78.00 Pure hypercholesterolemia, unspecified; R07.0 Pain in throat; F17.200 Nicotine dependence, unspecified, uncomplicated; R51.9 Headache, unspecified; I10 Essential (primary) hypertension; R10.84 Generalized abdominal pain; D72.829 Elevated white blood cell count, unspecified; K21.9 Gastro-esophageal reflux disease without esophagitis; Z79.899 Other long term (current) drug therapy
CPT/HCPCS: 80048; 81001; 85025; 99283; A4216